=== PATIENT | female | born 1945 | race Caucasian/White ===

== ENCOUNTER 2016-08-05 07:44 | Outpatient (CLI) ==
[2014-06-05 09:30] VITALS: BMI 28.3
--- NOTE | 2016-08-06 07:58 | MAMMO ---
EXAM: Digital screening mammogram HISTORY: Screening mammogram COMPARISON: Mammogram 08/08/2015 FINDINGS: Bilateral CC and MLO views of the breasts were performed digitally and demonstrate scatte red fibroglandular breast density (25 - 50%). Benign calcifications are unchanged. There is no abno rmal nodule or calcification. There is no significant interval change. IMPRESSION: No new nodule or calcification RECOMMENDATION: Annual screening mammogram BIRADS category II: Benign findings
== END 2016-08-05 07:45 | disposition home or self-care (01) ==
LOC: RAD 07:44
PROVIDERS: ATTEND Family Medicine
DX: Z12.31 Encounter for screening mammogram for malignant neoplasm of breast (principal)

== ENCOUNTER 2017-12-08 07:54 | Day surgery (SDC) ==
[2014-06-05 09:30] VITALS: BMI 28.3
[2017-12-08] MEDS ORDERED: LIDOCAINE 1% 20 ML MDV ID STA (08:34)
[2017-12-08] MEDS ORDERED: VERSED ONE (09:45)
[2017-12-08] MEDS ORDERED: DIPRIVAN 20 ML VIAL IVP ONE (09:45)
[2017-12-08 11:18] VITALS: BP 155/73; TEMP 97.2
--- NOTE | 2017-12-09 09:01 | OP ---
INDICATIONS FOR PROCEDURE: 72-year-old female presents for her first ever screening colonoscopy exam. She did have a positive cologuard. She is asymptomatic. MEDICATIONS: SEE ANESTHESIA NOTES. PROCEDURE: COLONOSCOPY, SNARE POLYPECTOMY. REPORT: The risks, benefits, alternatives and limitations were discussed in detail with the patient. Informed consent was obtained. After adequate sedation was achieved, a digital rectal exam revealed good tone, no masses. The colonoscope was introduced into the rectum and advanced under direct visual guidance to the cecum. The cecum was identified by the appendiceal orifice and IC valve. At the base of the cecum there was a large AVM present. In the proximal ascending colon there was a small AVM. I then withdrew the scope in a circumferemtial manner examining the mucosa quite carefully. I looked on the proximal and distal side of folds and flexures as best as possible. I was able to retroflex the scope in the right colon and left colon to increase visualization. In the distal sigmoid area, near the rectosigmoid junction, there was a small 5 mm benign appearing polyp. I removed this using cold snare technique. No other abnormalities were noted including on retroflex view of the anal canal. The prep was good. The withdrawal time was 17 minutes and 16 seconds. The patient tolerated the procedure well with stable vital signs and pulse oximetry throughout. IMPRESSION: 1. SMALL POLYP REMOVED FROM THE SIGMOID. 2. LARGE CECAL AVM WITH SMALLER AVM IN THE PROXIMAL ASCENDING RECOMMENDATIONS: 1. High fiber diet. 2. Office visit as needed. 3. Await polyp pathology. If the path shows adenomatous changes, then I suggest a surveillance colonoscopy examination again in 5 years. If the polyp is not adenomatous then consider screening colonoscopy examination again in 10 years depending on her clinical health and recommendations at that time. CC: DR. CARLOS DARNELL
== END 2017-12-08 11:05 | disposition home or self-care (01) ==
LOC: SURG 07:54
PROVIDERS: ATTEND Internal Medicine Gastroenterology
DX: K63.5 Polyp of colon (principal); Z12.11 Encounter for screening for malignant neoplasm of colon; Q27.33 Arteriovenous malformation of digestive system vessel

== ENCOUNTER 2017-12-22 12:13 | Outpatient (CLI) | payer OTHER ==
[2014-06-05 09:30] VITALS: BMI 28.3
--- NOTE | 2017-12-25 09:36 | MAMMO ---
EXAM: Bilateral digital screening mammogram (2-D and 3-D) History: Screening Comparison: Bilateral mammogram 08/05/2016 Findings: MLO and CC views of bilateral breasts demonstrate scattered fibroglandular breast parenchy ma. Stable benign calcifications within the right breast. There are no dominant masses, no suspicio us microcalcifications and no architectural distortions. CAD was reviewed by the radiologist. Tomos ynthesis was performed. Impression: Benign stable mammogram. Recommend followup routine screening mammography in 1 year. BIRADS 2
== END 2017-12-22 12:14 | disposition home or self-care (01) ==
LOC: RAD 12:13
PROVIDERS: ATTEND Family Medicine
DX: Z12.31 Encounter for screening mammogram for malignant neoplasm of breast (principal)
CPT/HCPCS: 77067

== ENCOUNTER 2024-03-02 16:28 | Inpatient (IN) ==
[2024-03-02] MEDS ORDERED: ASPIRIN CHEWABLE PO STA (16:32)
[2024-03-02 16:39] VITALS: BMI 38.2
--- NOTE | 2024-03-02 16:40 | ED.PDOC ---
General ED Provider: Dr. FRANCES VALLE MD Chief Complaint: Chest Pain Stated Complaint: Patient is a 78-year-old female that reported to the emergency department for shortness of breath and chest pain approximately 15 minutes prior to arrival. Patient stated that her chest pain was in the center of her chest and went up to her left shoulder. Patient stated that she has COPD and is short of breath intermittently. Patient stated that she has to use 3 L of nasal cannula at night while sleeping. Patient stated that she does not use home O2 during the day. She stated that 15 minutes prior to coming emergency department she started having increasing shortness of breath and put on her home O2 at 3 L. When she was in the emergency department she was found to have an O2 sat of 96% on her 3 L nasal cannula. Patient stated that she also has a history of hypertension and was found to have a BP of 205/120 in the emergency department. Patient's current BP is 191/87. Patient stated that she has taken all of her medications for her high blood pressure and other comorbidities today. Patient denied being sick recently. Patient did state that she has been tired lately and having to rest more than usual. Patient stated that she has attributed that to be an old. Patient denied any nausea, vomiting, dizziness, syncope, loss of consciousness, head injuries, fever, or any other acute symptoms not currently mentioned in HPI. Patient's vital signs are currently stable. Patient has a GCS of 15. -Patient's past medical history of hypertension, history of a nephrectomy, COPD, and chronic kidney disease. Time Seen by Provider: 03/02/24 16:30 Mode of Arrival: Walk-In Information Source: Patient Exam Limitations: No limitations Primary Care Provider: DENTON GONZALEZ Nursing and Triage Documentation Reviewed and Agree: Yes Does Patient Take Opioids?: No Is Patient Opioid Naive?: No What is Opioid Naive?: *Opioid Naive implies the patient is not already taking opioids or not chronically receiving opioids on a daily basis. *PRN dosing is not "usually" associated with tolerance. *Patients are at higher risk of over-sedation and aspiration. Is Patient Opioid Tolerant?: No What is Opioid Tolerant?: *Opioid Tolerance implies less than the expected response to an opioid. *Acquired tolerance is defined by the patient taking 60mg of oral morphine daily (or equianalgesic dose of another opioid) for 1 week or more. *Often associated with chronic pain. *May take more than usual dose to achieve desired pain control. Review of Systems Review Of Systems Constitutional: Reports Malaise and Weakness Eyes: Reports No symptoms Ears, Nose, Mouth, Throat: Reports No symptoms Respiratory: Reports Cough, Shortness of Breath and Wheezing Cardiac: Reports No symptoms GI: Reports No symptoms : Reports No symptoms Musculoskeletal: Reports No symptoms Skin: Reports No symptoms Neurological: Reports Anxiety Endocrine: Reports No symptoms All Other Systems: Reviewed and Negative [facility] Social History Smoking and tobacco status: Former smoker Female Reproductive History Menstrual Hx Hysterectomy: Yes Hx Tubal Ligation: No Physical Exam Physical Exam Appearance: Reports Well-appearing Ill-appearing: Mild Pain Distress: None Eyes: Reports TASNEEM, EOMI, Conjunctiva clear and Conjunctiva inflammed ENT: Reports Ears normal, Nose normal and Oropharynx normal Neck: Supple Respiratory: Reports Airway patent, Breath sounds diminished (Breath sounds are diminished bilaterally in the mid and lower lung zavala.) and Wheezes Cardiovascular: Reports RRR, Pulses normal, No rub and No murmur GI/: Reports Soft, Nontender, No masses and Bowel sounds normal Musculoskeletal: Reports Normal strength, ROM intact, No calf tenderness, Limited ROM and Edema (Bilateral +1 pitting edema in the lower extremities.) Skin: Reports Warm, Dry and Normal color Neurological: Reports Sensation intact, Motor intact, Reflexes intact, Cranial nerves intact, Alert and Oriented Psychiatric: Reports Affect appropriate, Mood appropriate and Anxious Course Course 03/02/24 16:43 03/02/24 16:43 Orders, Labs, Meds: Lab Review 03/02/24 03/02/24 16:43 16:52 WBC 8.18 RBC 4.32 Hgb 12.3 Hct 39.4 MCV 91.2 MCH 28.5 MCHC 31.2 L RDW Coeff of Dennis 13.7 Plt Count 193 Immature Gran % (Auto) 2.4 Neut % (Auto) 70.1 Lymph % (Auto) 16.6 [place] % (Auto) 7.9 Eos % (Auto) 2.3 Baso % (Auto) 0.7 Neut # (Auto) 5.7 Lymph # (Auto) 1.4 [place] # (Auto) 0.7 Eos # (Auto) 0.2 Baso # (Auto) 0.1 Immature Gran # (Auto) 0.2 ESR 37 H PT 9.3 INR 0.88 Puncture Site R rad Base Excess 3.5 H O2 Saturation 95.9 ABG pH 7.39 ABG pCO2 47.0 H ABG pO2 82.0 L ABG HCO3 28.5 H ABG Total CO2 29.9 H Dann Test Pos Hemoglobin 0.9 Oxyhemoglobin 95.0 Carboxyhemoglobin 1.2 Total Hemoglobin 12.2 O2 Delivery Device Cannula Oxygen Liter Flow 3.00 Sodium 140.2 Potassium 3.77 Chloride 101.4 Carbon Dioxide 29.1 Anion Gap 13.47 BUN 43.2 H Creatinine 2.80 H Estimated GFR (MDRD) 16.00 BUN/Creatinine Ratio 15.42 Glucose 236.4 H Lactic Acid 1.15 Calcium 9.05 Total Bilirubin 0.58 AST 24.3 ALT 23.2 Alkaline Phosphatase 88.9 Troponin I < 0.012 NT-Pro-B Natriuret Pep 726 H Total Protein 7.84 Albumin 4.47 Globulin 3.37 Albumin/Globulin Ratio 1.32 Procalcitonin < 0.05 Orders Category Date Time Status ABG DRAW REQUEST Stat CARDIO 03/02/24 16:34 Completed EKG-(ED ONLY) Stat CARDIO 03/02/24 16:32 Completed NEBULIZER TREATMENT Stat CARDIO 03/02/24 16:33 Completed ED APPLY O2 .ONCE EMERGENCY 03/02/24 16:32 Active ED ELECTRICIAN CHIEF APPLIED .ONCE EMERGENCY 03/02/24 16:32 Active ED IV/MEDIPORT/POWERPORT .ONCE EMERGENCY 03/02/24 16:35 Active ABG COOX Stat LAB 03/02/24 16:52 Completed C-REACTIVE PROTEIN Stat LAB 03/02/24 16:43 Received CBC W/ AUTO DIFF Stat LAB 03/02/24 16:43 Completed COMPREHENSIVE METABOLIC PANEL Stat LAB 03/02/24 16:43 Completed ESR Stat LAB 03/02/24 16:43 Completed FLU A/B MOLECULAR Stat LAB 03/02/24 16:46 Received LACTIC ACID Stat LAB 03/02/24 16:43 Completed NT-PROBNP(ED) Stat LAB 03/02/24 16:43 Completed PROCALCITONIN Stat LAB 03/02/24 16:43 Completed PT WITH INR Stat LAB 03/02/24 16:43 Completed RSV Stat LAB 03/02/24 16:46 Received SARS COV-2 RNA RAPID VAISHNAVI Stat LAB 03/02/24 16:46 Received TROPONIN I Stat LAB 03/02/24 16:43 Completed URINALYSIS C & S IF INDICATED Stat LAB 03/02/24 16:35 Uncollected 0.9 % Sodium Chloride [Saline Flush] Meds 03/02/24 16:35 Active 1 syr IVF PRN PRN Ipratropium/Albuterol Neb [Duoneb] Meds 03/02/24 16:32 Discontinued 3 ml NEB ONCE STA Methylprednisolone Sod Succ/Pf [Solu-Medrol 125 mg] Meds 03/02/24 16:32 Discontinued 125 mg IVP ONCE ONE Sodium Chloride 0.9% [Sodium Chloride] 1,000 ml Meds 03/02/24 16:35 Discontinued IV BOLUS CHEST, 1V AP ONLY Stat RADS 03/02/24 16:32 Taken Medications Generic Name Dose Route Start Last Admin Trade Name Freq PRN Reason Stop Dose Admin Sodium Chloride 1 syr 03/02/24 16:35 0.9% Sodium Chloride 10 Ml Disp.Syrin IVF PRN PRN To flush IV Discontinued Medications Generic Name Dose Route Start Last Admin Trade Name Freq PRN Reason Stop Dose Admin Albuterol/Ipratropium 3 ml 03/02/24 16:32 03/02/24 16:57 Ipratropium/Albuterol Vial.Neb NEB 03/02/24 16:33 3 ml ONCE STA Administration Sodium Chloride 1,000 mls @ 1,000 mls/hr 03/02/24 16:35 03/02/24 17:15 Sodium Chloride IV 03/02/24 17:34 1,000 mls/hr BOLUS ONE Administration Methylprednisolone Sodium Succinate 125 mg 03/02/24 16:32 03/02/24 17:14 Methylprednisolone Sod Succ/Pf 125 Mg/2 Ml Vial IVP 03/02/24 16:33 125 mg ONCE ONE Administration Vital Signs: Temp Pulse Resp BP Pulse Ox O2 Flow Rate 03/02/24 17:02 3 03/02/24 16:31 98.8 F 81 24 H 217/103 H 88 L Discharge Plan Discharge Patient Disposition: PLACED OBSERVATION Discharge Problem: Acute hypoxemic respiratory failure, Chronic obstructive pulmonary disease with (acute) exacerbation, Acute kidney injury superimposed on chronic kidney disease Chest pain Qualifiers: Chest pain type: unspecified Qualified Code(s): R07.9 - Chest pain, unspecified Community acquired pneumonia Qualifiers: Laterality: left Lung location: lower lobe of lung Qualified Code(s): J18.9 - Pneumonia, unspecified organism Did you review [place] [facility] for ALL controlled substances?: Not Applicable ED Provider: FRANCES VALLE Condition: Stable Physician Progress Note: Patient is a 78-year-old female that reported to the emergency department for shortness of breath and chest pain approximately 15 minutes prior to arrival. Patient stated that her chest pain was in the center of her chest and went up to her left shoulder. Patient stated that she has COPD and is short of breath intermittently. Patient stated that she has to use 3 L of nasal cannula at night while sleeping. Patient stated that she does not use home O2 during the day. She stated that 15 minutes prior to coming emergency department she started having increasing shortness of breath and put on her home O2 at 3 L. When she was in the emergency department she was found to have an O2 sat of 96% on her 3 L nasal cannula. Patient stated that she also has a history of hypertension and was found to have a BP of 205/120 in the emergency department. Patient's current BP is 191/87. Patient stated that she has taken all of her medications for her high blood pressure and other comorbidities today. Patient denied being sick recently. Patient did state that she has been tired lately and having to rest more than usual. Patient stated that she has attributed that to be an old. Patient denied any nausea, vomiting, dizziness, syncope, loss of consciousness, head injuries, fever, or any other acute symptoms not currently mentioned in HPI. Patient's vital signs are currently stable. Patient has a GCS of 15. -Patient's past medical history of hypertension, history of a nephrectomy, COPD, and chronic kidney disease. -Will order baseline labs, troponin, EKG, chest x-ray, CRP, -Will order IV normal saline 1 L bolus for dehydration. -Will order flu, RSV, and COVID test. -Due to patient's wheezing and shortness of breath from baseline will order DuoNeb treatment and IV methylprednisolone 125 mg. -EKG shows normal sinus rhythm with a rate of 72 bpm. Normal axis noted. No acute ST elevations. -Patient has an EDMOND on CKD with a BUN of 43 and a creatinine of 2.8. Will give gentle hydration with IV lactated Ringer's 1 L at 100 mL an hour. -CBC unremarkable. -X-ray of the chest shows a left lower lobe pneumonia. Will treat the pneumonia with IV Rocephin 1 g and IV azithromycin 500 mg. -Will call the hospitalist for admission for this patient. [phone]) spoke to hospitalist at [facility] and told her about the patient's diagnosis of acute hypoxemic respiratory failure, community-acquired pneumonia, and EDMOND on CKD. I discussed with her the current treatment. I also discussed with her the patient's current vital signs. She has agreed to admit the patient for observation.
[2024-03-02 16:49] LABS: BASOPHILS # (AUTO) 0.1 K/uL (0-0.2); BASOPHILS % (AUTO) 0.7 % (0.0-3.0); EOSINOPHILS # (AUTO) 0.2 K/ul (0.0-0.7); EOSINOPHILS % (AUTO) 2.3 % (0.0-7.0); HEMATOCRIT 39.4 % (37.0-47.0); HEMOGLOBIN 12.3 g/dl (12.0-16.0); IMMATURE GRANULOCYTE # (AUTO) 0.2 (0.0-1.0); IMMATURE GRANULOCYTE % (AUTO) 2.4 % (0.0-5.0); LYMPHOCYTES # (AUTO) 1.4 K/uL (0.60-3.4); LYMPHOCYTES % (AUTO) 16.6 (10.0-50.0); MEAN CORPUSCULAR HEMOGLOBIN 28.5 pg (27.0-31.0); MEAN CORPUSCULAR HGB CONC 31.2 (31.8-35.4); MEAN CORPUSCULAR VOLUME 91.2 fl (81.0-99.0); MONOCYTES # (AUTO) 0.7 K/uL (0.4-2.0); MONOCYTES % (AUTO) 7.9 (0-10); NEUTROPHILS # (AUTO) 5.7 K/ul (2.0-6.9); NEUTROPHILS % (AUTO) 70.1 % (42.2-75.2); PLATELET COUNT 193 10^3/uL (140-440); RDW COEFFICIENT OF VARIATION 13.7 % (11.6-14.8); RED BLOOD COUNT 4.32 10^6/ul (4.20-5.40); WHITE BLOOD COUNT 8.18 K/ul (4.6-10.2)
[2024-03-02 16:54] LABS: ABG PH 7.39 (7.35-7.45); BEecf 3.5 (-2.0-3.0); COHb 1.2 (0.5-1.5); HCO3 28.5 (21-28); MetHb 0.9 (0-1.5); TCO2 29.9 (19-24); sO2 95.9 % (94-98); tHb 12.2 g/dl (11.7-17.4)
[2024-03-02] MEDS: DUONEB NEB STA (16:57)
[2024-03-02 17:02] LABS: ALANINE AMINOTRANSFERASE 23.2 U/L (0-35); ALBUMIN 4.47 g/dL (3.5-5.0); ALKALINE PHOSPHATASE 88.9 U/L (53-141); ASPARTATE AMINO TRANSFERASE 24.3 U/L (14-36); BILIRUBIN,TOTAL 0.58 mg/dL (0.2-1.3); BLOOD UREA NITROGEN 43.2 mg/dL (7-17); CALCIUM 9.05 mg/dL (8.4-10.2); CARBON DIOXIDE 29.1 mmol/L (22-30.0); CHLORIDE 101.4 mmol/L (98-107); GLUCOSE 236.4 mg/dL (74-106); POTASSIUM 3.77 mmol/L (3.5-5.1); SODIUM 140.2 mmol/L (134.5-145); TOTAL PROTEIN 7.84 g/dL (6.3-8.2)
[2024-03-02 17:13] LABS: TROPONIN I < 0.012 ng/ml (0.0000-0.120)
[2024-03-02] MEDS: SOLU-MEDROL 125 MG IVP ONE (17:14)
[2024-03-02 17:15] LABS: PROTHROMBIN TIME 9.3 SEC (9.3-11.0)
[2024-03-02] MEDS: SODIUM CHLORIDE 1,000 ML IV ONE (17:15)
[2024-03-02 17:36] LABS: ERYTHROCYTE SEDIMENTATION RATE 37 mm/hr (0-20)
[2024-03-02 17:50] LABS: MOLECULAR FLU A NEGATIVE BY NAAT (NEGATIVE); MOLECULAR FLU B NEGATIVE BY NAAT (NEGATIVE); RSV MOLECULAR NEGATIVE BY NAAT (NEGATIVE); SARS COV-2 RNA RAPID NAAT NEGATIVE (NEGATIVE)
--- NOTE | 2024-03-02 17:54 | DI ---
EXAM: CHEST RADIOGRAPH TECHNIQUE: Single frontal chest radiograph. HISTORY: Shortness of breath. COMPARISON: 05/17/2021. FINDINGS: Lungs/Pleura: Mild streaky markings in the right lung base may represent subsegmental atelectasis or small infiltrate. No sizable effusion. No pneumothorax. Heart: The heart size is normal. Bones: Unremarkable. Other: None. IMPRESSION: 1. Possible subsegmental atelectasis or small infiltrate in the right lower lobe.
[2024-03-02] MEDS: ROCEPHIN 1 GM VIAL IVP ONE (17:56)
[2024-03-02] MEDS: ZITHROMAX 500 MG in SODIUM CHLORIDE 250 ML IV ONE (18:16)
[2024-03-02] MEDS: SODIUM CHLORIDE 1,000 ML IV SCH (19:23)
[2024-03-02 20:07] LABS: BILIRUBIN,URINE Negative (NEGATIVE); CLARITY,URINE Clear (CLEAR); COLOR,URINE Yellow (YELLOW); GLUCOSE, URINE (UA) Trace (NEGATIVE); KETONES,URINE Negative (NEGATIVE); LEUKOCYTE ESTERASE ,URINE Negative (NEGATIVE); NITRITE,URINE Negative (NEGATIVE); PH,URINE 5.5 (5-9); PROTEIN,URINE 2+ (NEGATIVE); URINE, BLOOD Negative (NEGATIVE); UROBILINOGEN,URINE 0.2 (0.2)
[2024-03-02 20:14] LABS: URINE RBC, MICROSCOPIC 0-2 (0-2)
[2024-03-02 20:15] LABS: BACTERIA,URINE TRACE (NOT PRESENT); MUCUS,URINE TRACE (NOT PRESENT)
[2024-03-02] MEDS: DUONEB NEB SCH (22:02)
[2024-03-03] MEDS: SOLU-MEDROL 40 MG IVP SCH (00:56)
[2024-03-03 05:58] LABS: BASOPHILS % (AUTO) 0.3 % (0.0-3.0); HEMATOCRIT 36.8 % (37.0-47.0); HEMOGLOBIN 11.3 g/dl (12.0-16.0); IMMATURE GRANULOCYTE # (AUTO) 0.3 (0.0-1.0); IMMATURE GRANULOCYTE % (AUTO) 3.3 % (0.0-5.0); LYMPHOCYTES # (AUTO) 0.7 K/uL (0.60-3.4); LYMPHOCYTES % (AUTO) 6.7 (10.0-50.0); MEAN CORPUSCULAR HEMOGLOBIN 28.3 pg (27.0-31.0); MEAN CORPUSCULAR HGB CONC 30.7 (31.8-35.4); MONOCYTES # (AUTO) 0.1 K/uL (0.4-2.0); MONOCYTES % (AUTO) 0.6 (0-10); NEUTROPHILS # (AUTO) 8.8 K/ul (2.0-6.9); NEUTROPHILS % (AUTO) 89.1 % (42.2-75.2); PLATELET COUNT 163 10^3/uL (140-440); RDW COEFFICIENT OF VARIATION 13.7 % (11.6-14.8); WHITE BLOOD COUNT 9.82 K/ul (4.6-10.2)
[2024-03-03 06:12] LABS: ALBUMIN 3.98 g/dL (3.5-5.0); ALKALINE PHOSPHATASE 58.6 U/L (53-141); ASPARTATE AMINO TRANSFERASE 27.3 U/L (14-36); BILIRUBIN,TOTAL 0.47 mg/dL (0.2-1.3); CALCIUM 7.88 mg/dL (8.4-10.2); CARBON DIOXIDE 25.2 mmol/L (22-30.0); CHLORIDE 101.3 mmol/L (98-107); CREATININE 2.58 mg/dL (0.60-1.30); GLUCOSE 317.4 mg/dL (74-106); POTASSIUM 4.42 mmol/L (3.5-5.1); SODIUM 138.4 mmol/L (134.5-145); TOTAL PROTEIN 7.1 g/dL (6.3-8.2)
[2024-03-03 06:20] LABS: ALANINE AMINOTRANSFERASE 35.7 U/L (0-35)
[2024-03-03] MEDS: ROCEPHIN 1 GM/50 ML D5W 1 GM/50 ML BAG IV SCH (08:20)
[2024-03-03] MEDS: ASPIRIN EC PO SCH (09:01)
[2024-03-03] MEDS: NITROSTAT SL ONE (09:02)
[2024-03-03] MEDS: ASPIRIN EC ONE (09:04)
[2024-03-03] MEDS: ZITHROMAX 500 MG in SODIUM CHLORIDE 250 ML IV SCH (09:33)
[2024-03-03] MEDS: TOPROL XL PO SCH (09:46)
[2024-03-03] MEDS: NORVASC PO SCH (09:46)
[2024-03-03] MEDS: VITAMIN D PO SCH (09:46)
[2024-03-03] MEDS: NON-FORMULARY MEDICATION (Fluticasone-Umeclidin-Vilanter [Trelegy Ellipta] 200-62.5-25 mcg IH SCH (09:48)
--- NOTE | 2024-03-03 13:12 | PCM ---
Date of Service Date Seen by Provider: 03/03/24 Admit Day/Time Admission Date: 03/02/24 Reason for Admission Chief Complaint: ACUTE HYPOXIC RESP FAILURE, PNEUMONIA, COPD EXACER Hospital Provider Hospital Provider: DRU STROUD, [facility] Primary Care Physician Primary Care Physician: MEDHAT AVENDAÑO History of Present Illness History of Present Illness: 78 yo female presented to the ER with shortness of breath. Reports she has not felt well over the last 2 days and has had back pain and chest pain. Denies any fever that she is aware of. Reports nonproductive cough and dyspnea on exertion. Has pmh of COPD without requirement of home oxygen. O2 sat was running in the upper 80s and was placed on 2L. Sat was only staying around 90 at that time and was further increased to 3L. She was given nebs, steroids, and abx in the ER. Found to have R lower lobe pneumonia. Admitted to med/surg observation. Case Discussed With Case Discussed With: Patient's case was discussed with the ER Physicians, Dr. Miguel. [facility] Medical History Myocardial infarct 1998 with stent placed I21.9 - Acute myocardial infarction, unspecified (ICD-10) Cancer of kidney C64.9 - Malignant neoplasm of unspecified kidney, except renal pelvis (ICD- 10) Cancer kidney cancer C80.1 - Malignant (primary) neoplasm, unspecified (ICD-10) Surgical History H/O kidney removal left kidney removed from cancer Z90.5 - Acquired absence of kidney (ICD-10) History of hysterectomy Z90.710 - Acquired absence of both cervix and uterus (ICD-10) Family History Mother Aneurysm BROTHER Diabetes Social History Smoking and tobacco status: Former smoker Alcohol intake: former Allergies Allergies Allergy/AdvReac Type Severity Reaction Status Date / Time codeine AdvReac Verified 03/02/24 16:55 Sulfa (Sulfonamide AdvReac Verified 03/02/24 16:55 Antibiotics) Current Medications Home Medications aspirin 325 mg tablet,delayed release 325 mg PO DAILYWM 01/08/14 [History Confirmed 03/02/24 Last Taken 03/02/24] cholecalciferol (vitamin D3) 50 mcg (2,000 unit) capsule (Vitamin D3) 5,000 unit PO DAILY 01/08/14 [History Confirmed 03/02/24 Last Taken 03/02/24] metoprolol succinate 50 mg tablet,extended release 24 hr 50 mg PO DAILY 01/08/14 [History Confirmed 03/02/24 Last Taken 03/02/24] ipratropium 0.5 mg-albuterol 3 mg (2.5 mg base)/3 mL nebulization soln 3 ml inhalation QID 11/15/19 [History Confirmed 03/02/24 Last Taken 03/02/24] levalbuterol tartrate 45 mcg/actuation aerosol inhaler 2 puff inhalation PRN shortness of breath 05/17/21 [History Confirmed 03/02/24 Last Taken Unknown] amlodipine 5 mg tablet 5 mg PO DAILY 03/02/24 [History Confirmed 03/02/24 Last Taken 03/02/24] bumetanide 1 mg tablet 1 mg PO DAILY PRN swelling 03/02/24 [History Confirmed 03/02/24 Last Taken 03/02/24] ferrous gluconate 240 mg (27 mg iron) tablet (Ferate) 240 mg PO .three times week 03/02/24 [History Confirmed 03/02/24 Last Taken 03/02/24] fluticasone fur. 200 mcg-umeclid 62.5 mcg-vilant 25 mcg inhalat.powder (Trelegy Ellipta) 1 inh inhalation DAILY 03/02/24 [History Confirmed 03/02/24 Last Taken 03/02/24] Home Albuterol Sulfate (Albuterol Sulfate 0.083% Vial.Neb) 2.5 mg NEB RTQ4H PRN PRN Reason: Wheezing Albuterol/Ipratropium (Ipratropium/Albuterol Vial.Neb) 3 ml NEB RTQ4H [facility] Last Admin: 03/03/24 09:17 Dose: Not Given Amlodipine Besylate (Amlodipine Besylate 5 Mg Tablet) 5 mg PO DAILY [facility] Last Admin: 03/03/24 09:46 Dose: 5 mg Aspirin (Aspirin 325 Mg Tablet.) 325 mg PO DAILYWM2 [facility] Last Admin: 03/03/24 09:01 Dose: 325 mg Cholecalciferol (Cholecalciferol (Vitamin D3) 1,000 Unit (25 Mcg) Tablet) 5,000 unit PO DAILY [facility] Last Admin: 03/03/24 09:46 Dose: 5,000 unit Sodium Chloride (Sodium Chloride) 1,000 mls @ 75 mls/hr IV .[id number] [facility] Last Admin: 03/03/24 09:36 Dose: 75 mls/hr CEFTRIAXONE/D5W 1 GM PREMIX (Rocephin 1 Gm/50 Ml D5w) 1 gm in 50 mls @ 100 mls/hr IV DAILY [facility] Stop: 03/06/24 08:59 Last Admin: 03/03/24 08:20 Dose: 100 mls/hr Azithromycin 500 mg/ Sodium (Chloride) 250 mls @ 250 mls/hr IV DAILY [facility] Stop: 03/06/24 08:59 Last Admin: 03/03/24 09:33 Dose: 250 mls/hr Methylprednisolone Sodium Succinate (Methylprednisolone Sod Succ/Pf 40 Mg/Ml Vial) 40 mg IVP Q8H [facility] Last Admin: 03/03/24 08:19 Dose: 40 mg Metoprolol Succinate (Metoprolol Succinate 50 Mg Tab.Er.24h) 50 mg PO DAILY [facility] Last Admin: 03/03/24 09:46 Dose: 50 mg Nitroglycerin (Nitroglycerin 0.4 Mg Tab.Subl) 0.4 mg SL Q5MIN X 3 DOSES PRN PRN Reason: Chest Pain Non-Formulary Medication (Ayhkurtspie-Dvwmzcupe-Iilzpnyr [Trelegy Ellipta]) 1 inh IH DAILY [facility] Last Admin: 03/03/24 09:48 Dose: Not Given Sodium Chloride (0.9% Sodium Chloride 10 Ml Disp.Syrin) 1 syr IVF PRN PRN PRN Reason: To flush IV Discontinued Medications Albuterol/Ipratropium (Ipratropium/Albuterol Vial.Neb) 3 ml NEB ONCE STA Stop: 03/02/24 16:33 Last Admin: 03/02/24 16:57 Dose: 3 ml Ceftriaxone Sodium (Ceftriaxone 1 Gm Vial) 1 gm IVP ONCE ONE Stop: 03/02/24 17:42 Last Admin: 03/02/24 17:56 Dose: 1 gm Sodium Chloride (Sodium Chloride) 1,000 mls @ 1,000 mls/hr IV BOLUS ONE Stop: 03/02/24 17:34 Last Infusion: 03/02/24 18:15 Dose: Infused Azithromycin 500 mg/ Sodium (Chloride) 250 mls @ 250 mls/hr IV ONCE ONE Stop: 03/02/24 18:40 Last Admin: 03/02/24 18:16 Dose: 250 mls/hr Methylprednisolone Sodium Succinate (Methylprednisolone Sod Succ/Pf 125 Mg/2 Ml Vial) 125 mg IVP ONCE ONE Stop: 03/02/24 16:33 Last Admin: 03/02/24 17:14 Dose: 125 mg Opioid Naive vs. Tolerant Does Patient Take Opioids?: No Is Patient Opioid Naive?: Yes What is Opioid Naive?: *Opioid Naive implies the patient is not already taking opioids or not chronically receiving opioids on a daily basis. *PRN dosing is not "usually" associated with tolerance. *Patients are at higher risk of over-sedation and aspiration. Is Patient Opioid Tolerant?: No What is Opioid Tolerant?: *Opioid Tolerance implies less than the expected response to an opioid. *Acquired tolerance is defined by the patient taking 60mg of oral morphine daily (or equianalgesic dose of another opioid) for 1 week or more. *Often associated with chronic pain. *May take more than usual dose to achieve desired pain control. Review of Systems Constitutional: Reports No symptoms Head: Reports Normocephalic Eyes: Reports No symptoms Ears: Reports No symptoms Nose: Reports No symptoms Mouth: Reports No symptoms Throat: Reports No symptoms Cardiovascular: Reports Chest pain Respiratory: Reports Cough and Shortness of air Gastrointestinal: Reports No symptoms Genitourinary: Reports No Symptoms Musculoskeletal: Reports No symptoms Endocrine: Reports No symptoms Hematology: Reports No symptoms Immunology: Reports No symptoms Neurological: Reports No symptoms Psychiatric: Reports No symptoms Physical examination Most Recent Vital Signs: Most Recent Vital Signs Temperature 97.8 F 03/03/24 10:00 Temperature Source Temporal Artery Scan 03/03/24 10:00 Temperature Source Temporal Artery Scan 03/02/24 16:31 Pulse Rate 91 03/03/24 10:00 Respiratory Rate 18 03/03/24 10:00 Blood Pressure 159/71 H 03/03/24 10:00 Blood Pressure Mean 100 03/03/24 10:00 Blood Pressure Left Arm 166/72 03/02/24 18:42 Blood Pressure Location Left Arm 03/03/24 10:00 Blood Pressure Position Sitting 03/03/24 10:00 O2 Sat by Pulse Oximetry 97 03/03/24 10:00 Oxygen Delivery Method Nasal Cannula 03/03/24 12:00 Oxygen Flow Rate 3 03/03/24 10:00 Height 5 ft 4 in 03/02/24 18:42 Weight 101.9 kg 03/03/24 05:48 Telemetry Type Remote Telemetry 03/03/24 07:00 Telemetry Monitoring Continues 03/03/24 07:00 Telemetry Heart Rate 90 03/03/24 07:00 Telemetry SPO2 97 03/03/24 07:00 EKG IN Interval 0.22 H 03/03/24 07:00 EKG QRS Interval 0.06 03/03/24 07:00 Telemetry Strip Reading SR w/ 1st degree AVB 03/03/24 07:00 Appearance: Positive No Apparent Distress and Alert and Oriented x3 Skin: Positive Warm HEENT: Positive Normocephalic and PERRLA Neck: Positive Supple and Midline Trachea Chest/Lungs: Positive Symmetrical With Equal Breath Sounds and Clear to Auscultation Bilaterally (moderately diminished) Heart: Positive RRR and Pulses Normal GI/: Positive Soft, Nontender, Bowel Sounds Normal and No Distention Musculoskeletal: Positive Not Examined Extremities: Positive Intact Peripheral Pulses, Stable Joints Without Laxity and Good ROM in All Joints Neurological: Positive Sensation Intact, Motor intact, Alert, Oriented and Muscle Strength 5/5 in Upper and Lower Extremities Bilaterally Labs This Visit Labs This Visit: Labs This Visit 03/02/24 03/02/24 03/02/24 16:43 16:46 16:52 WBC 8.18 RBC 4.32 Hgb 12.3 Hct 39.4 MCV 91.2 MCH 28.5 MCHC 31.2 L RDW Coeff of Dennis 13.7 Plt Count 193 Immature Gran % (Auto) 2.4 Neut % (Auto) 70.1 Lymph % (Auto) 16.6 [place] % (Auto) 7.9 Eos % (Auto) 2.3 Baso % (Auto) 0.7 Neut # (Auto) 5.7 Lymph # (Auto) 1.4 [place] # (Auto) 0.7 Eos # (Auto) 0.2 Baso # (Auto) 0.1 Immature Gran # (Auto) 0.2 ESR 37 H PT 9.3 INR 0.88 Puncture Site R rad Base Excess 3.5 H O2 Saturation 95.9 ABG pH 7.39 ABG pCO2 47.0 H ABG pO2 82.0 L ABG HCO3 28.5 H ABG Total CO2 29.9 H Dann Test Pos Hemoglobin 0.9 Oxyhemoglobin 95.0 Carboxyhemoglobin 1.2 Total Hemoglobin 12.2 O2 Delivery Device Cannula Oxygen Liter Flow 3.00 Sodium 140.2 Potassium 3.77 Chloride 101.4 Carbon Dioxide 29.1 Anion Gap 13.47 BUN 43.2 H Creatinine 2.80 H Estimated GFR (MDRD) 16.00 BUN/Creatinine Ratio 15.42 Glucose 236.4 H Lactic Acid 1.15 Calcium 9.05 Total Bilirubin 0.58 AST 24.3 ALT 23.2 Alkaline Phosphatase 88.9 Troponin I < 0.012 NT-Pro-B Natriuret Pep 726 H Total Protein 7.84 Albumin 4.47 Globulin 3.37 Albumin/Globulin Ratio 1.32 Procalcitonin < 0.05 Urine Color Urine Clarity Urine pH Ur Specific [place] Urine Protein Urine Glucose (UA) Urine Ketones Urine Blood Urine Nitrite Urine Bilirubin Urine Urobilinogen Ur Leukocyte Esterase Urine Microscopic RBC Urine Microscopic WBC Ur Squamous Epith Cells Urine Bacteria Urine Mucus Influ A Molecular Assay Negative by naat Influ B Molecular Assay Negative by naat RSV Antigen Negative by naat SARS CoV-2 RNA Rapid VAISHNAVI Negative 03/02/24 03/03/24 03/03/24 19:55 05:37 08:57 WBC 9.82 RBC 4.00 L Hgb 11.3 L Hct 36.8 L MCV 92.0 MCH 28.3 MCHC 30.7 L RDW Coeff of [place] 13.7 Plt Count 163 Immature Gran % (Auto) 3.3 Neut % (Auto) 89.1 H Lymph % (Auto) 6.7 L [place] % (Auto) 0.6 Eos % (Auto) 0.0 Baso % (Auto) 0.3 Neut # (Auto) 8.8 H Lymph # (Auto) 0.7 [place] # (Auto) 0.1 L Eos # (Auto) 0.0 Baso # (Auto) 0.0 Immature Gran # (Auto) 0.3 ESR PT INR Puncture Site Base Excess O2 Saturation ABG pH ABG pCO2 ABG pO2 ABG HCO3 ABG Total CO2 Dann Test Hemoglobin Oxyhemoglobin Carboxyhemoglobin Total Hemoglobin O2 Delivery Device Oxygen Liter Flow Sodium 138.4 Potassium 4.42 Chloride 101.3 Carbon Dioxide 25.2 Anion Gap 16.32 BUN 41.0 H Creatinine 2.58 H Estimated GFR (MDRD) 18.00 BUN/Creatinine Ratio 15.89 Glucose 317.4 H D Lactic Acid Calcium 7.88 L Total Bilirubin 0.47 AST 27.3 ALT 35.7 H Alkaline Phosphatase 58.6 D Troponin I < 0.012 NT-Pro-B Natriuret Pep Total Protein 7.10 Albumin 3.98 Globulin 3.12 Albumin/Globulin Ratio 1.27 Procalcitonin Urine Color Yellow Urine Clarity Clear Urine pH 5.5 Ur Specific [place] 1.025 Urine Protein 2+ H Urine Glucose (UA) Trace H Urine Ketones Negative Urine Blood Negative Urine Nitrite Negative Urine Bilirubin Negative Urine Urobilinogen 0.2 Ur Leukocyte Esterase Negative Urine Microscopic RBC 0-2 Urine Microscopic WBC 2-5 Ur Squamous Epith Cells 5-10 Urine Bacteria Trace Urine Mucus Trace Influ A Molecular Assay Influ B Molecular Assay RSV Antigen SARS CoV-2 RNA Rapid VAISHNAVI 03/03/24 10:33 WBC RBC Hgb Hct MCV MCH MCHC RDW Coeff of [place] Plt Count Immature Gran % (Auto) Neut % (Auto) Lymph % (Auto) [place] % (Auto) Eos % (Auto) Baso % (Auto) Neut # (Auto) Lymph # (Auto) [place] # (Auto) Eos # (Auto) Baso # (Auto) Immature Gran # (Auto) ESR PT INR Puncture Site Base Excess O2 Saturation ABG pH ABG pCO2 ABG pO2 ABG HCO3 ABG Total CO2 Dann Test Hemoglobin Oxyhemoglobin Carboxyhemoglobin Total Hemoglobin O2 Delivery Device Oxygen Liter Flow Sodium Potassium Chloride Carbon Dioxide Anion Gap BUN Creatinine Estimated GFR (MDRD) BUN/Creatinine Ratio Glucose Lactic Acid Calcium Total Bilirubin AST ALT Alkaline Phosphatase Troponin I < 0.012 NT-Pro-B Natriuret Pep Total Protein Albumin Globulin Albumin/Globulin Ratio Procalcitonin Urine Color Urine Clarity Urine pH Ur Specific [place] Urine Protein Urine Glucose (UA) Urine Ketones Urine Blood Urine Nitrite Urine Bilirubin Urine Urobilinogen Ur Leukocyte Esterase Urine Microscopic RBC Urine Microscopic WBC Ur Squamous Epith Cells Urine Bacteria Urine Mucus Influ A Molecular Assay Influ B Molecular Assay RSV Antigen SARS CoV-2 RNA Rapid VAISHNAVI Imaging Imaging: EXAM: CHEST RADIOGRAPH FINDINGS: Lungs/Pleura: Mild streaky markings in the right lung base may represent subsegmental atelectasis or small infiltrate. No sizable effusion. No pneumothorax. Heart: The heart size is normal. Bones: Unremarkable. Other: None. IMPRESSION: 1. Possible subsegmental atelectasis or small infiltrate in the right lower lobe. EKG Interpretation EKG Interpretation: Sinus rhythm, no acute changes, rate 74 Review Statement Review Statement: I have independently reviewed and interpreted the labs/EKGs/imaging that were ordered by the ER provider. I have reviewed all outside records that are available currently in our EMR including imaging/notes/labs from previous visits. Plan Plan: 1. Acute Hypoxic Respiratory Failure in setting of R lower lobe pneumonia and COPD exacerbation - wean oxygen as tolerated, nebs, steroids 2. R lower lobe pneumonia- rocephin, azith, steroids, nebs, culture sputum, MRSA, strep pneumo, and legionella ordered 3. COPD exacerbation - nebs, steroids, rocephin azith, wean O2 as tolerated 4. Chest pain - EKG negative for acute changes, troponins negative, symptoms resolved at this time 5. Hypertension - chronic, continue home medications DVT Prophylaxis: Ambulation Time Spent: Greater than 80 minutes spent with patient, 50% of the time spent with this patient was devoted to counseling and coordination of care. [facility]annin minutes spent discussing advance care planning. Disposition: Admit to: Med/Surg Observation DNR Discussed Plan of Care with Dr. Nikki Palma. Medications Medication Orders: Medications Ordered Category Date Time Status 0.9 % Sodium Chloride [Saline Flush] Meds 03/02/24 16:35 Active 1 syr IVF PRN PRN Albuterol Sulfate 0.083% Neb [Albuterol 0.083% Neb] Meds 03/02/24 19:39 Active 2.5 mg NEB RTQ4H PRN Amlodipine Besylate [Norvasc] Meds 03/03/24 09:00 Active 5 mg PO DAILY Aspirin [Aspirin EC] Meds 03/03/24 09:00 Active 325 mg PO DAILYWM2 Azithromycin Inj [Zithromax] 500 mg Meds 03/03/24 09:00 Active 0.9 % Sodium Chloride [Sodium Chloride] 250 ml IV DAILY Ceftriaxone/D5w 1 gm Premix [Rocephin 1 gm/50 ml D5w] Meds 03/03/24 09:00 Active 1 gm in 50 ml IV DAILY Cholecalciferol (Vitamin D3) [Vitamin D] Meds 03/03/24 09:00 Active 5,000 unit PO DAILY Ipratropium/Albuterol Neb [Duoneb] Meds 03/02/24 22:00 Active 3 ml NEB RTQ4H Methylprednisolone Sod Succ/Pf [Solu-Medrol 40 mg] Meds 03/03/24 01:00 Active 40 mg IVP Q8H Metoprolol Succinate [Toprol Xl] Meds 03/03/24 09:00 Active 50 mg PO DAILY Nitroglycerin [Nitrostat] Meds 03/03/24 08:53 Active 0.4 mg SL Q5MIN X 3 DOSES PRN Sodium Chloride 0.9% [Sodium Chloride] 1,000 ml Meds 03/02/24 19:00 Active IV 75 mls/hr [id number] [Trelegy Ellipta] Meds 03/03/24 09:00 Active 1 inh IH DAILY
[2024-03-04 06:01] LABS: BASOPHILS % (AUTO) 0.2 % (0.0-3.0); HEMATOCRIT 34.9 % (37.0-47.0); HEMOGLOBIN 10.9 g/dl (12.0-16.0); IMMATURE GRANULOCYTE # (AUTO) 0.5 (0.0-1.0); IMMATURE GRANULOCYTE % (AUTO) 2.7 % (0.0-5.0); LYMPHOCYTES # (AUTO) 0.6 K/uL (0.60-3.4); LYMPHOCYTES % (AUTO) 3.4 (10.0-50.0); MEAN CORPUSCULAR HEMOGLOBIN 29.1 pg (27.0-31.0); MEAN CORPUSCULAR HGB CONC 31.2 (31.8-35.4); MEAN CORPUSCULAR VOLUME 93.3 fl (81.0-99.0); MONOCYTES # (AUTO) 0.5 K/uL (0.4-2.0); MONOCYTES % (AUTO) 2.8 (0-10); NEUTROPHILS # (AUTO) 15.6 K/ul (2.0-6.9); NEUTROPHILS % (AUTO) 90.9 % (42.2-75.2); PLATELET COUNT 178 10^3/uL (140-440); RDW COEFFICIENT OF VARIATION 14.1 % (11.6-14.8); RED BLOOD COUNT 3.74 10^6/ul (4.20-5.40)
[2024-03-04 06:11] LABS: WHITE BLOOD COUNT 17.21 K/ul (4.6-10.2)
[2024-03-04 06:12] LABS: ALANINE AMINOTRANSFERASE 30.3 U/L (0-35); ALBUMIN 4.14 g/dL (3.5-5.0); ALKALINE PHOSPHATASE 71.6 U/L (53-141); ASPARTATE AMINO TRANSFERASE 31.4 U/L (14-36); BILIRUBIN,TOTAL 0.32 mg/dL (0.2-1.3); BLOOD UREA NITROGEN 41.7 mg/dL (7-17); CALCIUM 8.2 mg/dL (8.4-10.2); CARBON DIOXIDE 23.3 mmol/L (22-30.0); CHLORIDE 103.7 mmol/L (98-107); CREATININE 2.41 mg/dL (0.60-1.30); GLUCOSE 363.5 mg/dL (74-106); POTASSIUM 4.81 mmol/L (3.5-5.1); SODIUM 138.5 mmol/L (134.5-145); TOTAL PROTEIN 7.2 g/dL (6.3-8.2)
--- NOTE | 2024-03-04 11:19 | PCM.PROG ---
Date/Time Seen Date Seen by Provider: 03/04/24 Time Seen by Provider: 09:00 Provider [facility] Chief Complaint Chief Complaint: ACUTE HYPOXIC RESP FAILURE, PNEUMONIA, COPD EXACER Subjective Subjective: Tachypneic. SOB worse on exertion. Requiring bedside commode due to inability to ambulate to the restroom. Objective Appearance: Positive No Apparent Distress and Alert and Oriented x3 Chest/Lungs: Positive Symmetrical With Equal Breath Sounds and Clear to Auscultation Bilaterally (severely diminished) Heart: Positive RRR and Pulses Normal GI/: Positive Soft, Nontender and Bowel Sounds Normal Musculoskeletal: Positive Not Examined Neurological: Positive Sensation Intact, Motor intact, Alert and Oriented Vital Signs Vital Signs: Vital Signs: Last 24 Hours 03/03/24 12:00 03/03/24 13:00 03/03/24 13:00 Temperature Temperature Source Pulse Rate Respiratory Rate Blood Pressure Blood Pressure Mean Blood Pressure Location Blood Pressure Position O2 Sat by Pulse Oximetry Oxygen Delivery Method Nasal Cannula Nasal Cannula Oxygen Flow Rate Weight Telemetry Type Remote Telemetry Telemetry Monitoring Continues Telemetry Heart Rate 76 Telemetry SPO2 94 EKG ME Interval 0.24 H EKG QRS Interval 0.06 Telemetry Strip Reading SR w/ 1st degree AVB 03/03/24 14:00 03/03/24 14:00 03/03/24 14:00 Temperature 97.7 F Temperature Source Temporal Artery Scan Pulse Rate 86 Respiratory Rate 16 Blood Pressure 148/69 H Blood Pressure Mean 95 Blood Pressure Location Left Arm Blood Pressure Position Sitting O2 Sat by Pulse Oximetry 98 94 L Oxygen Delivery Method Nasal Cannula Nasal Cannula Nasal Cannula Oxygen Flow Rate 3 3 Weight Telemetry Type Telemetry Monitoring Telemetry Heart Rate Telemetry SPO2 EKG ME Interval EKG QRS Interval Telemetry Strip Reading 03/03/24 15:00 03/03/24 16:00 03/03/24 17:00 Temperature Temperature Source Pulse Rate Respiratory Rate Blood Pressure Blood Pressure Mean Blood Pressure Location Blood Pressure Position O2 Sat by Pulse Oximetry Oxygen Delivery Method Nasal Cannula Nasal Cannula Nasal Cannula Oxygen Flow Rate Weight Telemetry Type Telemetry Monitoring Telemetry Heart Rate Telemetry SPO2 EKG ME Interval EKG QRS Interval Telemetry Strip Reading 03/03/24 18:00 03/03/24 18:00 03/03/24 19:00 Temperature 98.1 F Temperature Source Temporal Artery Scan Pulse Rate 87 Respiratory Rate 18 Blood Pressure 139/68 Blood Pressure Mean 91 Blood Pressure Location Left Arm Blood Pressure Position Sitting O2 Sat by Pulse Oximetry 97 Oxygen Delivery Method Nasal Cannula Nasal Cannula Nasal Cannula Oxygen Flow Rate 3 Weight Telemetry Type Telemetry Monitoring Telemetry Heart Rate Telemetry SPO2 EKG ME Interval EKG QRS Interval Telemetry Strip Reading 03/03/24 19:00 03/03/24 19:30 03/03/24 20:00 Temperature Temperature Source Pulse Rate Respiratory Rate 22 H Blood Pressure Blood Pressure Mean Blood Pressure Location Blood Pressure Position O2 Sat by Pulse Oximetry Oxygen Delivery Method Nasal Cannula Nasal Cannula Oxygen Flow Rate 3 Weight Telemetry Type Remote Telemetry Telemetry Monitoring Continues Telemetry Heart Rate 82 Telemetry SPO2 96 EKG ME Interval 0.23 H EKG QRS Interval 0.05 L Telemetry Strip Reading SR w/ 1st AVB 03/03/24 20:10 03/03/24 21:00 03/03/24 22:00 Temperature Temperature Source Pulse Rate Respiratory Rate Blood Pressure Blood Pressure Mean Blood Pressure Location Blood Pressure Position O2 Sat by Pulse Oximetry 98 Oxygen Delivery Method Nasal Cannula Nasal Cannula Nasal Cannula Oxygen Flow Rate 3 Weight Telemetry Type Telemetry Monitoring Telemetry Heart Rate Telemetry SPO2 EKG ME Interval EKG QRS Interval Telemetry Strip Reading 03/03/24 22:00 03/03/24 23:00 03/04/24 00:00 Temperature 97.3 F L Temperature Source Temporal Artery Scan Pulse Rate 75 Respiratory Rate 18 Blood Pressure 154/77 H Blood Pressure Mean 102 Blood Pressure Location Left Arm Blood Pressure Position Supine O2 Sat by Pulse Oximetry 91 L Oxygen Delivery Method Nasal Cannula Nasal Cannula Nasal Cannula Oxygen Flow Rate 3 Weight Telemetry Type Telemetry Monitoring Telemetry Heart Rate Telemetry SPO2 EKG ME Interval EKG QRS Interval Telemetry Strip Reading 03/04/24 01:00 03/04/24 01:00 03/04/24 01:55 Temperature Temperature Source Pulse Rate Respiratory Rate Blood Pressure Blood Pressure Mean Blood Pressure Location Blood Pressure Position O2 Sat by Pulse Oximetry Oxygen Delivery Method Nasal Cannula Nasal Cannula Oxygen Flow Rate Weight Telemetry Type Remote Telemetry Telemetry Monitoring Continues Telemetry Heart Rate 66 Telemetry SPO2 96 EKG ME Interval 0.23 H EKG QRS Interval 0.06 Telemetry Strip Reading SR WITH 1ST DEGREE AVB 03/04/24 02:00 03/04/24 03:00 03/04/24 04:00 Temperature 98.2 F Temperature Source Temporal Artery Scan Pulse Rate 98 Respiratory Rate 20 Blood Pressure 164/87 H Blood Pressure Mean 112 Blood Pressure Location Left Arm Blood Pressure Position Supine O2 Sat by Pulse Oximetry 92 L Oxygen Delivery Method Nasal Cannula Nasal Cannula Nasal Cannula Oxygen Flow Rate 3 Weight Telemetry Type Telemetry Monitoring Telemetry Heart Rate Telemetry SPO2 EKG ME Interval EKG QRS Interval Telemetry Strip Reading 03/04/24 05:00 03/04/24 05:25 03/04/24 05:38 Temperature 97.7 F Temperature Source Temporal Artery Scan Pulse Rate 77 Respiratory Rate 20 Blood Pressure 157/93 H Blood Pressure Mean 114 Blood Pressure Location Left Arm Blood Pressure Position Sitting O2 Sat by Pulse Oximetry 97 95 Oxygen Delivery Method Nasal Cannula Nasal Cannula Nasal Cannula Oxygen Flow Rate 3 3 Weight Telemetry Type Telemetry Monitoring Telemetry Heart Rate Telemetry SPO2 EKG ME Interval EKG QRS Interval Telemetry Strip Reading 03/04/24 06:00 03/04/24 06:00 03/04/24 07:00 Temperature Temperature Source Pulse Rate Respiratory Rate Blood Pressure Blood Pressure Mean Blood Pressure Location Blood Pressure Position O2 Sat by Pulse Oximetry Oxygen Delivery Method Nasal Cannula Nasal Cannula Oxygen Flow Rate Weight 105 kg Telemetry Type Telemetry Monitoring Telemetry Heart Rate Telemetry SPO2 EKG ME Interval EKG QRS Interval Telemetry Strip Reading 03/04/24 07:00 03/04/24 07:20 03/04/24 08:00 Temperature Temperature Source Pulse Rate Respiratory Rate Blood Pressure Blood Pressure Mean Blood Pressure Location Blood Pressure Position O2 Sat by Pulse Oximetry Oxygen Delivery Method Nasal Cannula Nasal Cannula Oxygen Flow Rate 3 Weight Telemetry Type Remote Telemetry Telemetry Monitoring Continues Telemetry Heart Rate 68 Telemetry SPO2 EKG ME Interval EKG QRS Interval Telemetry Strip Reading SR w/ 1st degree avb 03/04/24 09:00 03/04/24 09:52 03/04/24 10:00 Temperature 97.9 F Temperature Source Temporal Artery Scan Pulse Rate 89 Respiratory Rate 19 Blood Pressure 173/85 H Blood Pressure Mean 114 Blood Pressure Location Left Arm Blood Pressure Position Sitting O2 Sat by Pulse Oximetry 92 L 94 L Oxygen Delivery Method Nasal Cannula Nasal Cannula Nasal Cannula Oxygen Flow Rate 4 4 Weight Telemetry Type Telemetry Monitoring Telemetry Heart Rate Telemetry SPO2 EKG ME Interval EKG QRS Interval Telemetry Strip Reading 03/04/24 10:00 Temperature Temperature Source Pulse Rate Respiratory Rate Blood Pressure Blood Pressure Mean Blood Pressure Location Blood Pressure Position O2 Sat by Pulse Oximetry Oxygen Delivery Method Nasal Cannula Oxygen Flow Rate Weight Telemetry Type Telemetry Monitoring Telemetry Heart Rate Telemetry SPO2 EKG ME Interval EKG QRS Interval Telemetry Strip Reading Lab Results Lab Results: Lab Results: Last 24 Hours 03/04/24 03/02/24 05:40 16:43 WBC 17.21 H D RBC 3.74 L Hgb 10.9 L Hct 34.9 L MCV 93.3 MCH 29.1 MCHC 31.2 L RDW Coeff of Dennis 14.1 Plt Count 178 Immature Gran % (Auto) 2.7 Neut % (Auto) 90.9 H Lymph % (Auto) 3.4 L [place] % (Auto) 2.8 Eos % (Auto) 0.0 Baso % (Auto) 0.2 Neut # (Auto) 15.6 H Lymph # (Auto) 0.6 [place] # (Auto) 0.5 Eos # (Auto) 0.0 Baso # (Auto) 0.0 Immature Gran # (Auto) 0.5 Sodium 138.5 Potassium 4.81 Chloride 103.7 Carbon Dioxide 23.3 Anion Gap 16.31 BUN 41.7 H Creatinine 2.41 H Estimated GFR (MDRD) 19.00 BUN/Creatinine Ratio 17.30 Glucose 363.5 H Calcium 8.20 L Total Bilirubin 0.32 AST 31.4 ALT 30.3 Alkaline Phosphatase 71.6 C-Reactive Prot, Quant 5 Total Protein 7.20 Albumin 4.14 Globulin 3.06 Albumin/Globulin Ratio 1.35 Additional Comments Additional Comments: I have independently reviewed and interpreted the labs/EKGs/imaging ordered during this hospital stay. I have reviewed outside records that are available in our EMR that pertain to medical stay including imaging/notes/labs from previous visits. Active Medications Active Medications: Medications Generic Name Dose Route Start Last Admin Trade Name Freq PRN Reason Stop Dose Admin Albuterol Sulfate 2.5 mg 03/02/24 19:39 Albuterol Sulfate 0.083% Vial.Neb NEB RTQ4H PRN Wheezing Amlodipine Besylate 5 mg 03/03/24 09:00 03/04/24 09:12 Amlodipine Besylate 5 Mg Tablet PO 5 mg DAILY ROMAINE Administration Aspirin 325 mg 03/03/24 09:00 03/04/24 09:12 Aspirin 325 Mg Tablet. PO 325 mg DAILYWM2 ROMAINE Administration Cholecalciferol 5,000 unit 03/03/24 09:00 03/04/24 09:11 Cholecalciferol (Vitamin D3) 1,000 Unit (25 Mcg) Tablet PO 5,000 unit DAILY ROMAINE Administration Sodium Chloride 1,000 mls @ 75 mls/hr 03/02/24 19:00 03/03/24 22:29 Sodium Chloride IV 75 mls/hr .[id number] ROMAINE Administration CEFTRIAXONE/D5W 1 GM PREMIX 1 gm in 50 mls @ 100 mls/hr 03/03/24 09:00 03/04/24 09:11 Rocephin 1 Gm/50 Ml D5w IV 03/06/24 08:59 100 mls/hr DAILY ROMAINE Administration Azithromycin 500 mg/ Sodium 250 mls @ 250 mls/hr 03/03/24 09:00 03/03/24 09:33 Chloride IV 03/06/24 08:59 250 mls/hr DAILY ROMAINE Administration Levalbuterol HCl 0.63 mg 03/04/24 12:00 Levalbuterol Hcl 0.63 Mg/3 Ml Vial.Neb NEB RTQ6H ROMAINE Methylprednisolone Sodium Succinate 40 mg 03/03/24 01:00 03/04/24 09:31 Methylprednisolone Sod Succ/Pf 40 Mg/Ml Vial IVP 40 mg Q8H ROMAINE Administration Metoprolol Succinate 50 mg 03/03/24 09:00 03/04/24 09:11 Metoprolol Succinate 50 Mg Tab.Er.24h PO 50 mg DAILY ROMAINE Administration Nitroglycerin 0.4 mg 03/03/24 08:53 Nitroglycerin 0.4 Mg Tab.Subl SL Q5MIN X 3 DOSES PRN Chest Pain Non-Formulary Medication 1 inh 03/03/24 09:00 03/04/24 09:31 [id number] [Trelegy Ellipta] IH 1 inh DAILY ROMAINE Administration Sodium Chloride 1 syr 03/02/24 16:35 0.9% Sodium Chloride 10 Ml Disp.Syrin IVF PRN PRN To flush IV Plan Plan: 1. Acute Hypoxic Respiratory Failure in setting of R lower lobe pneumonia and COPD exacerbation - Worsening, requiring 4L, wean oxygen as tolerated, steroids, switching nebs from duonebs to xopenex due to jittery, checking chest CT due to worsening condition 2. R lower lobe pneumonia- rocephin, azith, steroids, nebs, culture sputum, MRSA, strep pneumo, and legionella ordered 3. COPD exacerbation - nebs, steroids, rocephin azith, wean O2 as tolerated 4. EDMOND on CKD - NS@75mL/hr, baseline creatinine 1.9-2, 2.4 today, avoid ne phrotoxins/ hypotension 5. Chest pain - EKG negative for acute changes, troponins negative, symptoms resolved at this time 6. Hypertension - chronic, continue home medications DVT Prophylaxis: Ambulation Review Statement Review Statement: I have personally discussed and reviewed the patient's visit/currently labs/imaging/decision making with Dr. Palma, my supervising attending. Greater that 50 minutes spent with patient, 50% of the time spent with this patient was devoted to counseling and coordination of care. Additional Comments Additional Comments: Chest CT - atelectasis bilateral, pneumonia cannot be excluded; moderate emphysema, and adenopathy. Patient tolerating xopenex well.
[2024-03-04] MEDS: XOPENEX 0.63 MG NEB SCH (11:53)
--- NOTE | 2024-03-04 12:09 | CT ---
EXAM: CHEST CT WITHOUT CONTRAST HISTORY: Worsening shortness of breath. TECHNIQUE: CT acquisition of the chest from the thoracic inlet to the upper abdomen without IV contra st administration. 2-D coronal and sagittal reformatted images were obtained from the axial source i mages. IV Contrast: None. CT Dose Reduction Techniques Performed: Yes. COMPARISON: None. FINDINGS: Several prominent and mildly enlarged mediastinal nodes. For example, right precarinal node measures 1.6 cm in short axis dimension. Left paratracheal node at level of the AP window, 1.0 cm. No enlar ged hilar or axillary nodes are identified. Moderate coronary artery calcifications. Borderline car diomegaly. No significant pericardial fluid/thickening. Trace bilateral pleural fluid. Visualized portions of the upper abdomen included in this examination of the chest show fatty infiltr ation of the partially visualized liver. Peripelvic cyst of the partially visualized left kidney, on ly partially imaged. Lung window images show moderate emphysema. Small amount of debris in dependent aspect of the trache a. Mild to moderate dependent atelectasis of both lower lobes. Mild subsegmental atelectasis of the right middle lobe and lingula. No pneumothorax. Bone window images show no significant lytic or sclerotic bone lesions. IMPRESSION: 1. Moderate emphysema. 2. Mild to moderate dependent atelectasis of both lower lobes. Pneumonia cannot be excluded. 3. Mild mediastinal adenopathy, probably either reactive or secondary to old granulomatous disease. Follow-up CT chest in 3 months is recommended to show stability. All CT scans are performed using dose optimization techniques as appropriate to the performed exam an d include at least one of the following: Automated exposure control, adjustment of the mA and/or kV according t o size, and the use of iterative reconstruction technique.
[2024-03-04] MEDS: ALBUTEROL 0.083% NEB NEB PRN (14:33)
[2024-03-04] MEDS: XOPENEX 1.25 MG NEB SCH (17:55)
[2024-03-05 05:13] LABS: BASOPHILS % (AUTO) 0.1 % (0.0-3.0); HEMATOCRIT 38.4 % (37.0-47.0); HEMOGLOBIN 11.7 g/dl (12.0-16.0); IMMATURE GRANULOCYTE # (AUTO) 0.6 (0.0-1.0); LYMPHOCYTES # (AUTO) 0.5 K/uL (0.60-3.4); LYMPHOCYTES % (AUTO) 2.3 (10.0-50.0); MEAN CORPUSCULAR HEMOGLOBIN 28.5 pg (27.0-31.0); MEAN CORPUSCULAR HGB CONC 30.5 (31.8-35.4); MEAN CORPUSCULAR VOLUME 93.4 fl (81.0-99.0); MONOCYTES # (AUTO) 0.5 K/uL (0.4-2.0); MONOCYTES % (AUTO) 2.5 (0-10); NEUTROPHILS # (AUTO) 19.6 K/ul (2.0-6.9); NEUTROPHILS % (AUTO) 92.1 % (42.2-75.2); PLATELET COUNT 210 10^3/uL (140-440); RDW COEFFICIENT OF VARIATION 14.5 % (11.6-14.8); RED BLOOD COUNT 4.11 10^6/ul (4.20-5.40); WHITE BLOOD COUNT 21.34 K/ul (4.6-10.2)
[2024-03-05] MEDS: NITROSTAT SL PRN (05:26)
[2024-03-05 05:27] LABS: ALANINE AMINOTRANSFERASE 39.7 U/L (0-35); ALBUMIN 4.33 g/dL (3.5-5.0); ALKALINE PHOSPHATASE 65.3 U/L (53-141); ASPARTATE AMINO TRANSFERASE 36.6 U/L (14-36); BILIRUBIN,TOTAL 0.5 mg/dL (0.2-1.3); BLOOD UREA NITROGEN 44.8 mg/dL (7-17); CALCIUM 8.51 mg/dL (8.4-10.2); CARBON DIOXIDE 26.6 mmol/L (22-30.0); CHLORIDE 105.4 mmol/L (98-107); CREATININE 2.28 mg/dL (0.60-1.30); GLUCOSE 303.9 mg/dL (74-106); POTASSIUM 4.73 mmol/L (3.5-5.1); SODIUM 138.8 mmol/L (134.5-145); TOTAL PROTEIN 7.51 g/dL (6.3-8.2)
[2024-03-05] MEDS: ATIVAN IVP ONE (05:46)
--- NOTE | 2024-03-05 06:31 | DCSUM ---
Admission Date Admission Date: 03/02/24 Discharge Date Discharge Date: 03/05/24 Admission Diagnosis Admission Diagnosis: 1. Acute Hypoxic Respiratory Failure in setting of R lower lobe pneumonia and COPD exacerbation 2. R lower lobe pneumonia 3. COPD exacerbation 4. Chest pain 5. Hypertension Discharge Diagnosis Discharge Diagnosis: 1. Acute Hypoxic Respiratory Failure in setting of R lower lobe pneumonia and COPD exacerbation - Unchanged 2. R lower lobe pneumonia 3. COPD exacerbation - Unchanged 4. EDMOND on CKD - Improving 5. Hypertension - chronic, stable 6. [facility] Hospital Provider Hospital Provider[facility] DRU STR[facility] Primary Care Physician: MEDHAT AVENDAÑO Summary of History and Physical Summary of History and Physical: 78 yo female presented to the ER with shortness of breath. Reports she has not felt well over the last 2 days and has had back pain and chest pain. Denies any fever that she is aware of. Reports nonproductive cough and dyspnea on exertion. Has pmh of COPD without continuous requirement of home oxygen. O2 sat was running in the upper 80s and was placed on 2L. Sat was only staying around 90 at that time and was further increased to 3L. She was given nebs, steroids, and abx in the ER. Found to have R lower lobe pneumonia. Admitted to med/surg [facility]. [facility] Course Subjective: During initial exam on admission, patient was experiencing midsternal chest pain. EKG was negative for acute changes. Trended troponins were normal. Symptoms improved prior to medication given. No further chest pain has been mentioned since am of 03/03 Patient has been treated for community acquired pneumonia and COPD exacerbation with rocephin, azithromycin, steroids, and nebs. Patient has continued to require 3-4L of oxygen (baseline is 2-3L at bedtime) and desaturates down into the 70s on ambulation. CT chest obtained yesterday 03/04 and showed moderate emphysema and bilateral atelectasis/pneumonia cannot be excluded. Nebs adjusted from duonebs to xopenex due to patient report of jittla rs. She has also been treated for EDMOND on CKD with IV fluids. Baseline creatinine per previous records is 1.9 to 2 and on admission patient was 2.8. NS was given at 75mL/hr. RN contacted provider this am and reports pain voiced this am she was having chest pain. Intermittently present throughout the night. Located midsternal. EKG obtained and negative for acute changes. Initial troponin 1.010, then 1.28, now 1.5. Due to ongoing chest pain and trending troponin, concern for PE and continued worsening condition. Spoke with Dr. Mazariegos, Hospitalist at [facility] for transfer. Appearance: Pleasant, Alert and Ill-appearing HEENT: MMM and Supple CVS: No Murmur Abdomen: Soft, Non-Tender and No Distention Respiratory: Other (diminished, clear breath sounds, tachypneic) Extremities: No Edema Vital Signs: Most Recent Vital Signs Temperature 96.8 F L 03/05/24 06:00 Temperature Source Oral 03/05/24 06:00 Temperature Source Temporal Artery Scan 03/02/24 16:31 Pulse Rate 81 03/05/24 06:00 Respiratory Rate 20 03/05/24 06:00 Blood Pressure 178/89 H 03/05/24 06:00 Blood Pressure Mean 118 03/05/24 06:00 Blood Pressure Left Arm 166/72 03/02/24 18:42 Blood Pressure Location Left Arm 03/05/24 06:00 Blood Pressure Position Supine 03/05/24 06:00 O2 Sat by Pulse Oximetry 92 L 03/05/24 06:00 Oxygen Delivery Method Nasal Cannula 03/05/24 06:00 Oxygen Flow Rate 4 03/05/24 06:00 Height 5 ft 4 in 03/02/24 18:42 Weight 105 kg 03/04/24 06:00 Telemetry Type Remote Telemetry 03/05/24 00:52 Telemetry Monitoring Continues 03/05/24 00:52 Telemetry Heart Rate 83 03/05/24 00:52 Telemetry SPO2 92 L 03/05/24 00:52 EKG MS Interval 0.20 03/05/24 00:52 EKG QRS Interval 0.07 03/05/24 00:52 Telemetry Strip Reading sinus rhythm 03/05/24 00:52 Imaging: EXAM: CHEST CT WITHOUT CONTRAST 03/04/24 HISTORY: Worsening shortness of breath. TECHNIQUE: CT acquisition of the chest from the thoracic inlet to the upper abdomen without IV contrast administration. 2-D coronal and sagittal reformatted images were obtained from the axial source images. IV Contrast: None. CT Dose Reduction Techniques Performed: Yes. COMPARISON: None. FINDINGS: Several prominent and mildly enlarged mediastinal nodes. For example, right precarinal node measures 1.6 cm in short axis dimension. Left paratracheal node at level of the AP window, 1.0 cm. No enlarged hilar or axillary nodes are identified. Moderate coronary artery calcifications. Borderline cardiomegaly. No significant pericardial fluid/thickening. Trace bilateral pleural fluid. Visualized portions of the upper abdomen included in this examination of the chest show fatty infiltration of the partially visualized liver. Peripelvic cyst of the partially visualized left kidney, only partially imaged. Lung window images show moderate emphysema. Small amount of debris in dependent aspect of the trachea. Mild to moderate dependent atelectasis of both lower lobes. Mild subsegmental atelectasis of the right middle lobe and lingula. No pneumothorax. Bone window images show no significant lytic or sclerotic bone lesions. IMPRESSION: 1. Moderate emphysema. 2. Mild to moderate dependent atelectasis of both lower lobes. Pneumonia cannot be excluded. 3. Mild mediastinal adenopathy, probably either reactive or secondary to old granulomatous disease. Follow-up CT chest in 3 months is recommended to show stability. EXAM: CHEST RADIOGRAPH 03/02/24 TECHNIQUE: Single frontal chest radiograph. HISTORY: Shortness of breath. COMPARISON: 05/17/2021. FINDINGS: Lungs/Pleura: Mild streaky markings in the right lung base may represent subsegmental atelectasis or small infiltrate. No sizable effusion. No pneumothorax. Heart: The heart size is normal. Bones: Unremarkable. Other: None. IMPRESSION: 1. Possible subsegmental atelectasis or small infiltrate in the right lower lobe. Lab Results Last 24 Hours: 03/05/24 04:53 WBC 21.34 H RBC 4.11 L Hgb 11.7 L Hct 38.4 MCV 93.4 MCH 28.5 MCHC 30.5 L RDW Coeff of Dennis 14.5 Plt Count 210 Immature Gran % (Auto) 3.0 Neut % (Auto) 92.1 H Lymph % (Auto) 2.3 L [place] % (Auto) 2.5 Eos % (Auto) 0.0 Baso % (Auto) 0.1 Neut # (Auto) 19.6 H Lymph # (Auto) 0.5 L [place] # (Auto) 0.5 Eos # (Auto) 0.0 Baso # (Auto) 0.0 Immature Gran # (Auto) 0.6 Sodium 138.8 Potassium 4.73 Chloride 105.4 Carbon Dioxide 26.6 Anion Gap 11.53 BUN 44.8 H Creatinine 2.28 H Estimated GFR (MDRD) 21.00 BUN/Creatinine Ratio 19.64 Glucose 303.9 H D Calcium 8.51 Total Bilirubin 0.50 AST 36.6 H ALT 39.7 H Alkaline Phosphatase 65.3 Troponin I 1.010 H* Total Protein 7.51 Albumin 4.33 Globulin 3.18 Albumin/Globulin Ratio 1.36 Discharge Instructions Discharge Planning: Discharge Planning > 40 minutes If patient is discharged with left ventricular systolic dysfunction: NA Discharged with a beta mil? [] If no, why not? [] Discharged with an cori/arb? [] If no, why not? [] Transfer to [facility] Accepting: Dr. Mazariegos. Diagnoses: NSTEMI, Acute Hypoxic Respiratory Failure, Community Acquired Pneumonia, COPD exacerbation, EDMOND on CKD Discharge Medications: Medications at Discharge (Home Meds & RX) aspirin 325 mg tablet,delayed release 325 mg PO DAILYWM 01/08/14 cholecalciferol (vitamin D3) 50 mcg (2,000 unit) capsule (Vitamin D3) 5,000 unit PO DAILY 01/08/14 metoprolol succinate 50 mg tablet,extended release 24 hr 50 mg PO DAILY 01/08/14 ipratropium 0.5 mg-albuterol 3 mg (2.5 mg base)/3 mL nebulization soln 3 ml inhalation QID 11/15/19 levalbuterol tartrate 45 mcg/actuation aerosol inhaler 2 puff inhalation PRN shortness of breath 05/17/21 amlodipine 5 mg tablet 5 mg PO DAILY 03/02/24 bumetanide 1 mg tablet 1 mg PO DAILY PRN swelling 03/02/24 ferrous gluconate 240 mg (27 mg iron) tablet (Ferate) 240 mg PO .three times week 03/02/24 fluticasone fur. 200 mcg-umeclid 62.5 mcg-vilant 25 mcg inhalat.powder (Trelegy Ellipta) 1 inh inhalation DAILY 03/02/24 Discharge Plan Discharge Discharge Orders: Discharge Patient (ONCE); Ordered 03/05/24 Ordered By: GISEL LECHUGA Patient Disposition: TSF SHORT-TRM HOSP Did you review [place] [employer] for ALL controlled substances?: No Discussed opioids are addictive and Narcan is available by prescription or from pharmacy.: No Condition: Stable
[2024-03-05] MEDS: ASPIRIN CHEWABLE PO ONE (06:41)
[2024-03-05] MEDS: HEPARIN IVP STA (06:42)
[2024-03-05] MEDS: HEPARIN 25,000 UNIT/250 ML NACL 25,000 UNIT/250 ML BAG IV SCH (06:52)
[2024-03-05 07:24] LABS: PROTHROMBIN TIME 10.4 SEC (9.3-11.0)
[2024-03-05 10:30] VITALS: BP 182/94; PULSE 84; RESP 20; TEMP 97.7
[2024-03-05] MEDS: HYDRALAZINE HCL IVP ONE (13:28)
[2024-03-06 17:17] LABS: SPECIMEN SOURCE Urine (.); STEP PNEUMO ORGANISM ID Not indicated. (.); STREP PNEUMO AG Negative (Negative); STREP PNEUMO BODY FLUID CULT Not indicated. (.)
== END 2024-03-05 13:44 | disposition short-term general hospital (02) | DRG 193 ==
LOC: ED 16:28 → MEDSURG B 16:28 → OBSVTOIN 17:54 → MEDSURG B 18:30
PROVIDERS: ADMIT Hospitalist; ATTEND Nurse Practitioner Family
DX: J18.9 Pneumonia, unspecified organism; N18.9 Chronic kidney disease, unspecified; Z87.891 Personal history of nicotine dependence; R07.9 Chest pain, unspecified; J96.01 Acute respiratory failure with hypoxia; F41.9 Anxiety disorder, unspecified; I21.4 Non-ST elevation (NSTEMI) myocardial infarction; J44.1 Chronic obstructive pulmonary disease with (acute) exacerbation; N17.9 Acute kidney failure, unspecified; I12.9 Hypertensive chronic kidney disease with stage 1 through stage 4 chronic kidney disease, or unspecified chronic kidney disease